=== PATIENT | female | born 1945 | race African-American/Black ===

== ENCOUNTER 2018-08-25 19:34 | Inpatient (IN) | payer OTHER ==
[~2018-08-25] VITALS: Ht 160 cm; Wt 73.9 kg
[~2018-08-25 19:34] MED LIST: AMBIEN 10 MG TA10 MG PO; ASPIRIN81 M2 PO; ATIVAN0.5 MG PO; BYSTOLIC10 MG PO; CRESTOR10 MG PO; FUROSEMIDE 20 M20 M1 PO; GLUCOPHAGE XR500 MG PO; GLUCOPHAGE500 MG PO; INDAPAMIDE2.5 MG PO; LOTREL 10-20 M1 EACH PO; POTASSIUM20 PO; SERTRALINE HCL50 MG PO
[2018-08-25 19:36] VITALS: BP 157/63
[2018-08-25 20:55] LABS: ABSOLUTE NEUTROPHILS 7.8 thou/uL (1.4-8.2); BASOPHILS 0.9 % (0.0-2.0); HEMATOCRIT 34.7 % (37.0-47.0); HEMOGLOBIN 11.8 gm/dL (12.0-15.0); LYMPHOCYTES 16.8 % (24.0-44.0); MCHC 33.9 g/dL (28.0-37.0); MCV 76.6 fL (80.0-100.0); MONOCYTES 6.1 % (1.0-8.0); PLATELET COUNT 296 thou/uL (150-400); POLYS 76.2 % (36.0-66.0); RBC 4.53 mil/uL (4.20-5.00); RDW 15.5 % (10.5-14.5); WBC 10.2 thou/uL (4.0-11.0)
[2018-08-25 21:00] LABS: URINE BILIRUBIN NEGATIVE (Negative); URINE BLOOD TRACE (Negative); URINE CLARITY CLEAR; URINE COLOR YELLOW; URINE GLUCOSE-RANDOM* NEGATIVE (Negative); URINE KETONES NEGATIVE (Negative); URINE LEUKOCYTES NEGATIVE (Negative); URINE NITRITE NEGATIVE (Negative); URINE PROTEIN (DIPSTICK) 1+ (Negative); URINE SPECIFIC GRAVITY 1.025 (1.005-1.035); URINE UROBILINOGEN 0.2 E.U./dl (0.2-1.0)
[2018-08-25 21:03] LABS: CALCIUM 8.9 mg/dL (8.5-10.1); CREATININE 1.5 mg/dL (0.6-1.0); POTASSIUM 3.2 mmol/L (3.5-5.1)
[2018-08-25 21:09] LABS: ALBUMIN 3.6 g/dL (3.4-5.0); DIRECT BILIRUBIN 0.1 mg/dL (<0.1-0.3); TOTAL BILIRUBIN 0.6 mg/dL (<0.1-1.0)
[2018-08-25 21:10] LABS: CASTS None Seen /LPF (None Seen); CRYSTALS None Seen /LPF (None Seen); SQUAMOUS 0-3 Few /LPF (0-3); URINE RBC 0-2 Rare /HPF (0-2)
[2018-08-25 21:11] LABS: URINE WBC 0-5 Rare /HPF (0-5)
[2018-08-25 23:06] VITALS: BP 157/63
--- NOTE | 2018-08-25 23:07 | NUR ---
HAND OFF TOOL PRINTED TO 4 EAST
[2018-08-25 23:58] VITALS: BP 144/48
[2018-08-26 00:22] VITALS: BP 149/57
--- NOTE | 2018-08-26 01:23 | NUR ---
PT ADMITTED TO THE UNIT FROM THE ER IN A STABLE CONDITION.PT DENIED PAIN,N/V.ADMISSION ASSESSMENT,EDUCATION AND HX COMPLETED.PT'S MEDICATION LIST NOT COMPLETED BECAUSE PT COULDN'T REMEMBER ALL HER MEDS.CALL PLACED TO PT'S DTR AND SHE PROMISED TO BRING THE MED LIST IN THE AM.SCD ON BLE.PT CONT ON HIGH FLOW O2@10L.PT RESTING ON HER BED AT THIS TIME.CALL LIGHT WITHIN REACH.
[2018-08-26 02:53] LABS: BE(vivo) -3.6 mmol/L (-2 to +3); HCO3 23.3 mmol/L (22.0-26.0); PCO2 49.3 mmHg (35.0-45.0); sO2 79.5 % (92.0-98.0)
[2018-08-26 02:55] LABS: PO2 48.6 mmHg (80.0-100.0); pH 7.292 (7.360-7.450)
[2018-08-26 03:29] LABS: CALCIUM 9.1 mg/dL (8.5-10.1); CREATININE 1.6 mg/dL (0.6-1.0); POTASSIUM 3.8 mmol/L (3.5-5.1)
[2018-08-26 05:40] VITALS: BP 146/65
--- NOTE | 2018-08-26 06:35 | NUR ---
PATIENT IS ALERT AND ORIETNED. PATIENT TRANSFERED AT 0530. PAITNET IS ON BIPAP. PAITENT ANTIBIOTIC HUNG. PATIENT IS RESTING COMFORTABLY IN BED. WCM. PATIENT IS IMPROOVING.
--- NOTE | 2018-08-26 06:59 | NUR ---
(LATE ENTRY). RESPONDED TO SURVEY DIRECTOR CALL WHEN PT IN ROOM 428. SEE SURVEY DIRECTOR FLOWSHEET. PT TRANSFERED TO [facility] RM 358.
[2018-08-26 07:30] VITALS: BP 163/70
[2018-08-26 08:20] LABS: BE(vivo) 0.5 mmol/L (-2 to +3); HCO3 25.6 mmol/L (22.0-26.0); PCO2 42.8 mmHg (35.0-45.0); pH 7.394 (7.360-7.450); sO2 99.6 % (92.0-98.0)
[2018-08-26 11:15] VITALS: BP 127/63
[2018-08-26] MEDS ORDERED: LIPITOR 20 MG T20 M1 PO (13:27)
[2018-08-26] MEDS ORDERED: XANAX 0.5 MG0.5 MG PO (13:28)
[2018-08-26] MEDS ORDERED: BYSTOLIC 5 MG5 M1 PO (13:34)
[2018-08-26] MEDS ORDERED: NORCO 7.5-3251 EACH PO (13:35)
[2018-08-26] MEDS ORDERED: LOPERAMIDE 2 MG2 M1 PO (13:38)
--- NOTE | 2018-08-26 15:29 | NUR ---
care of pt assumed this am @ ~0700. pt noted to be on bipap this am while in bed. pt has progressed today in that she has only been on the bipap for a couple of hours at a time and then she has been on o2 per nc @ 6lt w/ o2 saturations of 92-99%. pt states she is breathing better than she was early this am. pt denies co pain and no n/v/d today. pt was npo for breakfast this am as there is concern re: aspiration pneumonia, speech therapy at mid afternoon to evaluate. pt had galley items (applesauce, yogart, crackers, juice and water) for lunch. dinner ordered per dr. watkins. pt has worked w/ pt today, been up in her chair for several hours and used the [facility] to void and stool today. pt has had several family members visit today which has brightened her spirits.
[2018-08-26 16:00] VITALS: BP 141/66
[2018-08-26 20:14] VITALS: BP 154/74
[2018-08-27 04:59] VITALS: BP 164/85
[2018-08-27 06:12] LABS: ABSOLUTE NEUTROPHILS 14.8 thou/uL (1.4-8.2); BASOPHILS 0.5 % (0.0-2.0); HEMATOCRIT 34.4 % (37.0-47.0); HEMOGLOBIN 11.4 gm/dL (12.0-15.0); LYMPHOCYTES 7.1 % (24.0-44.0); MCH 25.5 pg (26.0-34.0); MCHC 33.2 g/dL (28.0-37.0); MCV 76.7 fL (80.0-100.0); PLATELET COUNT 274 thou/uL (150-400); POLYS 89.4 % (36.0-66.0); RBC 4.49 mil/uL (4.20-5.00); RDW 15.3 % (10.5-14.5); WBC 16.6 thou/uL (4.0-11.0)
[2018-08-27 06:29] LABS: ALBUMIN 3.1 g/dL (3.4-5.0); CALCIUM 8.7 mg/dL (8.5-10.1); CREATININE 1.2 mg/dL (0.6-1.0); MAGNESIUM 2.3 mg/dL (1.8-2.4); POTASSIUM 3.4 mmol/L (3.5-5.1); TOTAL BILIRUBIN 0.4 mg/dL (<0.1-1.0); TOTAL PROTEIN 7.6 g/dL (6.4-8.2)
--- NOTE | 2018-08-27 06:35 | NUR ---
SLEPT PART OF SHIFT. STATES SHE DOESNT SLEEP LONG PERIODS OF TIME. WORKING ON GOALS AND PLAN OF CARE FOR NOC. PROGRESSING SLOWLY TOWARDS DISCHARGE GOALS. UP TO BEDSIDE COMODE WITH STANDBY ASSIST WITH ASSIST OF 1. DENIES COMPLAINTS OF PAIN OR SHORTNESS OF AIR. CONTINUE TO ASSES.
[2018-08-27 07:20] VITALS: BP 160/76
[2018-08-27 11:15] VITALS: BP 152/71
[2018-08-27 11:42] LABS: ABSOLUTE NEUTROPHILS 16.1 thou/uL (1.4-8.2); BASOPHILS 0.5 % (0.0-2.0); HEMATOCRIT 34.8 % (37.0-47.0); HEMOGLOBIN 11.4 gm/dL (12.0-15.0); MCH 25.5 pg (26.0-34.0); MCHC 32.9 g/dL (28.0-37.0); MCV 77.5 fL (80.0-100.0); MONOCYTES 2.9 % (1.0-8.0); PLATELET COUNT 280 thou/uL (150-400); POLYS 91.6 % (36.0-66.0); RBC 4.49 mil/uL (4.20-5.00); RDW 15.4 % (10.5-14.5); WBC 17.5 thou/uL (4.0-11.0)
[2018-08-27 15:30] VITALS: BP 150/64
[2018-08-27 20:29] VITALS: BP 167/72
--- NOTE | 2018-08-27 20:46 | NUR ---
Assumed pt care this am, on 6L of O2 via NC. No verbalization of SOB pain, nausea or vomiting nor diarrihea. Pt had requested for her anti-anxiety medication to be started. All home medication have been restarted but will take her morning medications tomorrow as per pt. Pt was able to walk to the toilet stand by assista and took a shower with minimal help. FAmily came to visit and expressed concern with regards to some medication not being restarted and previous care given. POC followed, informed family memeber she can speak to workday manager for concerns.
[2018-08-28 03:09] VITALS: BP 147/72
--- NOTE | 2018-08-28 04:05 | NUR ---
HAD EPISODE AROUND 2100 WITH COMPLAINTS OF INCREASED WHEEZING AND SHORTNESS OF AIR. RT HERE AND PLACED ON BIPAP. TOLERATED BIPAP AND SLEPT UNTIL 0230, THEN REQUESTED TO GO BACK TO 5L/NC. O2 SAT REMAINS > 95%. WORKING ON GOALS AND PLAN OF CARE FOR NOC. PROGRESSING SLOWLY TOWARDS DISCHARGE GOALS. CONTINUE TO ASSES CLOESLY. NO PRESENT COMPLAINTS OF SHORTNESS OF AIR, STATING SHE FEELS BETTER NOW. DENIES COMPLAINTS OF PAIN.
[2018-08-28 05:37] LABS: HEMATOCRIT 33.8 % (37.0-47.0); HEMOGLOBIN 11.2 gm/dL (12.0-15.0); MCH 25.9 pg (26.0-34.0); MCV 78.4 fL (80.0-100.0); PLATELET COUNT 289 thou/uL (150-400); RBC 4.31 mil/uL (4.20-5.00); RDW 15.4 % (10.5-14.5); WBC 15.6 thou/uL (4.0-11.0)
[2018-08-28 05:51] LABS: CALCIUM 8.4 mg/dL (8.5-10.1); CREATININE 1.4 mg/dL (0.6-1.0); POTASSIUM 3.5 mmol/L (3.5-5.1)
[2018-08-28 06:39] LABS: ABSOLUTE NEUTROPHILS 14.2 thou/uL (1.4-8.2)
[2018-08-28 07:27] VITALS: BP 158/71
--- NOTE | 2018-08-28 10:47 | NUR ---
ASSESSMENT: CM REVIEWED CHART AND MET WITH PATIENT AT THE BEDSIDE. PT WAS ADMITTED WITH CAP. PT REPORTS THAT SHE LIVES IN A DUPLEX WITH HER DAUGHTER AND HER FAMILY. PT REPORTS THAT SHE HAS ABOUT 3 STEPS TO ENTER THE DUPLEX WITH NO HANDRAILS AND ABOUT 14 STEPS WITH HANDRAILS TO HER BEDROOM. PT REPORTS SHE AMBULATES INDEPENDENTLY AND DOES NOT HAVE ANY DME AT HOME. PT DENIES HAVING A GRAB BAR OR SHOWER CHAIR AND STATES SHE IS INDEPENDENT WITH ADLS. PT REPORTS THAT SHE DOES NOT WEAR OXYGEN AT HOME BUT IS CURRENTLY ON 6L. PT REPORTS SHE HAS NOT HAD HH IN THE PAST NOR BEEN TO A SNF. CM DISCUSSED ROLE. PHYSICAL THERAPY SAW PATIENT ON 08/26 AND RECOMMENDED HOME. PT REPORTS SHE WILL SEE HOW SHE DOES TODAY BUT DOES NOT FEEL SHE WILL NEED HH AND HAS GOOD SUPPORT FROM HER FAMILY. CM WILL COTNINUE TO FOLLOW TO ASSIST NEEDED.
[2018-08-28 11:25] VITALS: BP 164/85
[2018-08-28 15:07] VITALS: BP 150/72
[2018-08-28 19:51] VITALS: BP 157/67
[2018-08-29 03:45] VITALS: BP 154/77
--- NOTE | 2018-08-29 03:53 | NUR ---
SLEPT FOR SHORT TIME TONIGHT. ON BIPAP FROM 2330 TO 0215 WHEN AWAKENED DUE TO INCONTINENCE OF STOOL. PATIENT STATES SHE HAS NEVER DONE THAT BEFORE. REASSURED AND ASSISTED TO CLEAN UP AND LINENS CHANGED. WORKING ON GOALS AND PLAN OF CARE FOR NOC. PROGRESSING SLOWLY TOWARDS DISCHARGE GOALS. O2 SATS REMAIN 91-97% ON 3L/NC. CONTINUE TO ASSES CLOSELY.
[2018-08-29 07:41] VITALS: BP 160/83
[2018-08-29 08:09] LABS: HEMATOCRIT 30.9 % (37.0-47.0); HEMOGLOBIN 10.5 gm/dL (12.0-15.0); MCHC 33.9 g/dL (28.0-37.0); MCV 76.6 fL (80.0-100.0); PLATELET COUNT 295 thou/uL (150-400); RBC 4.03 mil/uL (4.20-5.00); RDW 15.3 % (10.5-14.5); WBC 14.7 thou/uL (4.0-11.0)
[2018-08-29 08:16] LABS: CALCIUM 8.6 mg/dL (8.5-10.1); CREATININE 1.3 mg/dL (0.6-1.0); POTASSIUM 3.5 mmol/L (3.5-5.1)
[2018-08-29 09:32] LABS: ABSOLUTE NEUTROPHILS 13.4 thou/uL (1.4-8.2); METAMYELOCYTES 1 %
[2018-08-29 09:33] LABS: ANISOCYTOSIS 1+; MICROCYTES 1+; OVALOCYTES FEW
[2018-08-29 11:25] VITALS: BP 170/82
--- NOTE | 2018-08-29 14:49 | NUR ---
ON-GOING ASSESSMENT: CM REVIEWED CHART AND SPOKE WITH ATTENDING. PT IS SLOWLY PROGRESSING TOWARDS DISCHARGE GOALS. CM WILL CONTINUE TO MONITOR AND FOLLOW OXYGEN NEEDS.
[2018-08-29 15:49] VITALS: BP 153/77
--- NOTE | 2018-08-29 16:26 | NUR ---
ASSUMED CARE OF PT AT APPROX 0700. PT IS ALERT AND ORIENTED X4, MONITORED ON TELE AND ABLE TO MAINTAIN 02 SAT >90 ON 02 NC. DENIES PAIN AND SOA. EVEN NON LABORED BREATHING. DOES BECOME SLIGHTLY LABORED WITH ACTIVITY BUT RECOVERS WELL. REMAINS ON IV ANTBX. ASSESSMENT CHARTED. PT STATED SHE WAS FEELING ANXIOUS, TREATED WITH PRN ANXIETY MEDICATION WITH COMPLETE RESOLUTION. VSS. NO ACUTE DISTRESS. PT MAKING PROGRESS TOWARDS POC GOALS. WILL CONTINUE TO MONITOR.
[2018-08-29 19:14] VITALS: BP 174/76
--- NOTE | 2018-08-29 19:29 | HC ---
[facility] [place] [address] CONSULTATION Name: SUSANNAALANA ALEXUS Room #: 358-P ADM IN M.R.#: [id number] Admission: 08/25/18 ������������������ Attend Phys: Artie Ruiz MD Discharge: ������������������ Date of : 45 Report #: [id number] THIS REPORT FOR: //name// CC: Rocco Villegas DATE OF SERVICE: 08/26/2018 REFERRAL PHYSICIAN: Dr. Ruiz. REASON FOR REFERRAL: Dyspnea. HISTORY OF PRESENT ILLNESS: The patient is a 73-year-old -Vietnamese female, who presents to the ED with progressive dyspnea. A Pulmonary consultation was requested. The patient states that she has been a lifelong smoker. She has never been diagnosed with chronic lung disease. She was in her usual state of health until the last several days, she started to notice increasing dyspnea. Symptoms specifically started on Tuesday. Otherwise, she denies any fever, night sweats or chills, chest pain or productive cough. Chest x-ray is notable for cardiomegaly, questionable left lower lobe infiltrates. Small right-sided pleural infiltrate is noted. PAST MEDICAL HISTORY: Notable for hypertension, diabetes mellitus, tobacco abuse, hypercholesterolemia. PAST SURGICAL HISTORY: Notable for hysterectomy, back surgery. ALLERGIES: None to medications. HOME MEDICATIONS: Include Bystolic 1 tablet once a day, Ambien 10 mg once a day, Crestor 10 mg once a day, Lasix 20 mg once a day, metformin XR 500 mg 1 tablet p.o. b.i.d., Ativan 0.5 mg p.o. p.r.n., indapamide 1 tablet once a day, Lotrel 10/20 mg once a day, Zoloft 50 mg once a day, aspirin once a day. FAMILY HISTORY: Noncontributory. SOCIAL HISTORY: She smokes about a pack a day. She denies any alcohol use. REVIEW OF SYSTEMS: As mentioned above. Otherwise 10-point system review negative. [facility] [address] [place] [address] CONSULTATION Name: ALANA MULLINS Room #: 358[facility] IN ..#: [id number] Admission: 08/25/18 ������������������ Attend Phys: Artie Ruiz MD Discharge: ������������������ Date of : 45 Report #: [id number] PHYSICAL EXAMINATION: GENERAL: She is awake, alert, in no distress. She appears mildly dyspneic. VITAL SIGNS: Temperature maximum is 100.6 degrees Fahrenheit, pulse is 90, respiratory rate is 22, blood pressure is 160/70 mmHg, saturation 98%. HEENT: Normocephalic, atraumatic. NECK: Supple, without any lymphadenopathy or thyromegaly. CHEST: Breath sounds are good with mild expiratory wheezes. CARDIOVASCULAR: Normal S1, S2. There are no obvious murmurs or gallop. Pulses are 2+/4+ bilaterally. BREASTS: Exam is deferred. ABDOMEN: Soft, nontender, no organomegaly or masses felt. GENITOURINARY: Deferred. RECTAL: Deferred. EXTREMITIES: There is no edema, cyanosis or clubbing. LABORATORY DATA: Chest x-ray as mentioned above. Electrolytes: Sodium 132, potassium 3.2, chloride is 97, CO2 is 27, BUN is 27, creatinine is 1.5. WBC 10,200, hemoglobin 11.8, platelets are normal. No evidence of bandemia. IMPRESSION: 1. Acute hypoxic respiratory failure in this 73-year-old -Vietnamese female. Exam revealed bronchospasm. She has smoked most of her life. Exacerbation of chronic obstructive pulmonary disease along with possible pneumonia is likely cause. 2. Mild bibasilar infiltrates, questionable pleural effusion. Pneumonia is possible. Questionable element of heart failure. Note that patient has been on diuretics as an outpatient. 3. Renal insufficiency, unclear if it is acute or chronic. 4. Diabetes mellitus type 2. 5. Hypertension. 6. Depression. 7. Tobacco abuse with probable underlying chronic obstructive pulmonary disease. RECOMMENDATION: We will recommend broad-spectrum antibiotics, bronchodilators and corticosteroids. Strongly recommend smoking cessation. Would also evaluate for possible heart failure with an echocardiogram. DVT and GI prophylaxis recommended. Thank you for this consultation. ��������������������������������������������� <ELECTRONICALLY SIGNED> ���������������������������������������� By: Helio Pepe MD ��������������������������������������������� 08/29/18 1929 1629 05 Helio Pepe MD /nt
[2018-08-30 04:32] VITALS: BP 170/70
[2018-08-30 07:30] VITALS: BP 166/72
[2018-08-30 11:47] LABS: HEMATOCRIT 34.4 % (37.0-47.0); HEMOGLOBIN 11.4 gm/dL (12.0-15.0); MCH 25.4 pg (26.0-34.0); MCHC 33.1 g/dL (28.0-37.0); MCV 76.7 fL (80.0-100.0); PLATELET COUNT 345 thou/uL (150-400); RBC 4.48 mil/uL (4.20-5.00); RDW 15.2 % (10.5-14.5)
--- NOTE | 2018-08-30 11:55 | NUR ---
ON-GOING ASSESSMENT: CM REVIEWED CHART AND SPOKE WITH ATTENDING. PLANS ARE FOR PATIENT TO HAVE A BRONCH TOMORROW. CM WILL CONTINUE TO FOLLOW TO ASSIST NEEDED.
[2018-08-30 12:30] LABS: ABSOLUTE NEUTROPHILS 13.3 thou/uL (1.4-8.2); MYELOCYTES 3 %
[2018-08-30 12:31] LABS: ANISOCYTOSIS 1+
[2018-08-30 15:17] LABS: APTT 26.6 Seconds (24.5-32.8)
[2018-08-30 15:30] VITALS: BP 179/65
[2018-08-30 16:06] VITALS: BP 186/81
--- NOTE | 2018-08-30 16:31 | NUR ---
PT C/O OF CHEST/UNDER BREAST PAIN. CONTACT DR. STEWART AND INSTRUCTED TO OBTAIN TROPONIN, EKG, AND GIVE NITRO. PT NO DENIES PAIN AND REFUSES NITRO SL. WILL CONTINUE TO ASSESS.
--- NOTE | 2018-08-30 17:03 | NUR ---
ASSUMED CARE OF PT AT APPROX 0700. PT IS ALERT AND ORIENTED X4, MONITORED ON TELE AND ABLE TO MAINTAI 02 SAT >90 ON 02 SETTINGS. VIA NC. DENIES PAIN AND SOA. EVEN NON LABORED BREATHING AT REST BUT DOES GET LABORED WITH ACTIVITY. 02 SAT REMAINS STABLE AND PT ABLE TO RECOVER QUICKLY. ASSESSMENT CHARTED. THIS AFTERNOON PT COMPLAINS ON CHEST PAIN AND BP IS ELEVATED. DOCTOR NOTIFIED. RECIEVED ORDER FOR NITRO AND EKS. PT REFFUSES NITRO AND STATES THAT IT IS NOT HER CHEST HURTING IT IS HER BREAST. BREASK EXAMINED, NO SWELLING OR CHANGE IN TEMPERATURE. PT REQUESTED MEDICATION FOR ANXIETY, ADMINISTERED TO PT. PT HAS BEEN UPDATED ON POC. WILL CONTINUE TO MONITOR
[2018-08-30 20:00] VITALS: BP 171/66
[2018-08-31] VITALS (8 sets, daily range): BP systolic 152–193; BP diastolic 59–93
[2018-08-31 05:30] LABS: ABSOLUTE RETIC COUNT 0.0766 10^6/uL; OBSERVED RETIC COUNT 1.74 % (0.6-2.6)
--- NOTE | 2018-08-31 05:33 | NUR ---
PT RESTING IN BED. PT HAS BEEN NPO SINCE YESTERDAY WITH SIPS OF WATER WHEN TAKING PILLS FOR TODAYS BRONCH. PT SR ON MONITOR. PT WITH MAINTENANCE IVF. PT BP REMAINS ELEVATED EVEN WITH PRN BP MED BUT A DOSE OF METEPROLOL WAS GIVEN ONETIME DURING MY SHIFT.
[2018-08-31 05:39] LABS: % SATURATION 9 % (20-39); IRON 26 ug/dL (50-170); TIBC 280 ug/dL (250-450)
[2018-08-31 06:07] LABS: FERRITIN 136 ng/mL (8-252)
--- NOTE | 2018-08-31 08:01 | NUR ---
care of pt assumed @ ~0700. pt awake aox4, aware of bronchoscopy this am. phone call from pt's daughter re: pt's night and plan for this am.
--- NOTE | 2018-08-31 08:22 | EKG ---
[place] [address] [facility] [place] [address] ELECTROCARDIOGRAM REPORT Name: ALANA MULLINS Room #: 358-P ADM IN M.R.#: [id number] ������������������ Admission: 08/25/18 ������������������ Attend Phys: Artie Ruiz MD Discharge: ������������������ Date of : 45 Report #: [id number] ����������������������������������������������������������������� [id number] THIS REPORT FOR: //name// [facility] Test Date: 2018-08-30 Test Time: 16:24:48 Pat Name: ALANA MULLINS Department: Room: 358 P Gender: F Rivet Tester: SAMANTHA : 1945 Requested By: Brit Obregon Order Number: [id number] MD: Kev Olivo Measurements Intervals Freedom Rate: 87 P: 74 [place]: 143 QRS: -9 QRSD: 109 T: 72 QT: 421 QTc: 507 Interpretive Statements Sinus rhythm Abnormal R-wave progression, late transition Nonspecific intraventricular conduction delay Prolonged QT interval Compared to ECG 10/05/2012 05:50:18 No significant change was found Electronically Signed On 08-31-2018 8:21:51 CDT by Kev Olivo [email or web address] ��������������������������������������������� <ELECTRONICALLY SIGNED> ���������������������������������������� By: Kev Olivo MD, [facility] ��������������������������������������������� 08/31/18 0821 1624 1624 Kev Olivo MD, [facility] /EPI
--- NOTE | 2018-08-31 10:02 | NUR ---
Assess for length of stay. Admit with pneumonia, SOA. Bronchoscopy today. Hx diabetes, BG 105-151. Pt states appetite down slightly but was ready to eat some lunch following procedure today. Reports usual wt of 160 lb and most recent wt 163 lb. [employer] strength wnl. Low nutrition risk
--- NOTE | 2018-08-31 11:35 | 2DMMODE ---
[facility] [address] [place] [address] 2 D/M-MODE ECHOCARDIOGRAM Name: ALANA MULLINS Room #: 358-P ADM IN M.R.#: [id number] ������������� Admission: 08/25/18 ������������� Attend Phys: Artie Ruiz MD Discharge: ��� ������������� ��� Date of : 45 Date of Service: 08/31/18 1134 �� Report #: [id number] �������� ��������������������������������������������[id number] THIS REPORT FOR: //name// APPROVED REPORT Study performed: 08/31/2018 09:37:16 EXAM: Comprehensive 2D, Doppler, and color-flow Echocardiogram Patient Location: Bedside Room #: 358 Status: routine BSA: 1.77 HR: 83 bpm BP: 170/75 mmHg Rhythm: NSR Other Information Study Quality: Adequate Risk Factors: Cardiac Risk Factors: HTN, Hyperlipidemia, DM, Smoking Indications COPD Dyspnea Weakness 2D Dimensions IVSd: 16.61 (7-11mm) LVOT Diam: 18.00 (18-24mm) LVDd: 33.36 mm PWd: 14.88 (7-11mm) Ascending Ao: 31.57 (22-36mm) LVDs: 20.03 (25-40mm) Aortic Root: 27.49 mm LV Single Plane 4CH: 75.06 % LV Single Plane 2CH: 68.45 % Biplane EF: 77.2 % Volumes Left Atrial Volume (Systole) Single Plane 4CH: 128.02 mL Single Plane 2CH: 119.89 mL LA ESV Index: 80.00 mL/m2 Aortic Valve AoV Peak Enoc.: 2.44 m/s [facility] [address] [place] [address] 2 D/M-MODE ECHOCARDIOGRAM Name: ALANA MULLINS Room #: 358-P ADM IN M.R.#: [id number] ������������� Admission: 08/25/18 ������������� Attend Phys: Artie Ruiz MD Discharge: ��� ������������� ��� Date of : 45 Date of Service: 08/31/18 1134 �� Report #: [id number] �������� ��������������������������������������������[id number] AO Peak Gr.: 21.87 mmHg LVOT Max P.31 mmHg AO Mean Gr.: 12.60 mmHg LVOT Mean P.99 mmHg AO V2 Mean: 1.65 m/s LVOT Max V: 1.35 m/s AO V2 VTI: 40.82 cm LVOT Mean V: 1.06 m/s JOSE (VTI): 1.74 cm2 LVOT V1 VTI: 29.22 cm JOSE Vmax: 1.34 cm2 SV (LVOT): 71.03 mL Mitral Valve MV Peak Gr.: 33.54 mmHg MV Mean Gr.: 15.74 mmHg MV Max Enoc.: 2.87 m/s MV Mean Enoc.: 1.88 m/s MV VTI: 646.73 mm MVA VTI: 109.83 mm2 MV PHT: 126.36 ms MVA (PHT): 1.74 cm2 TDI Medial E' Enoc.: 0.07 m/s Lateral E' Enoc.: 0.11 m/s Pulmonary Valve PV Peak Enoc.: 1.29 m/s PV Peak Gr.: 6.62 mmHg Pulmonary Vein P Vein S: 0.46 m/s P Vein A: 0.28 m/s P Vein D: 0.82 m/s P Vein A Dur.: 100.3 msec P Vein S/D Ratio: 0.56 Tricuspid Valve TR Peak Enoc.: 4.22 m/s RAP Estimate: 10.00 mmHg TR Peak Gr.: 71.35 mmHg PA Pressure: 81.00 mmHg Left Ventricle The left ventricle is normal size. There is normal LV segmental wall motion. Moderate to severe concentric left ventricular hypertrophy. Left ventricular systolic function is hyperdynamic. The mid- left ventricular cavity pressure gradient is 65 mmHg. LVEF is >70%. This study is not technically sufficient to allow evaluation of the LV diastolic function. Right Ventricle The right ventricle is normal size. The right ventricular [place] [address] 2 D/M-MODE ECHOCARDIOGRAM Name: ALANA MULLINS Room #: 358-P [facility] IN M.R.#: [id number] ������������� Admission: 08/25/18 ������������� Attend Phys: Artie Ruiz MD Discharge: ��� ������������� ��� Date of : 45 Date of Service: 08/31/18 1134 �� Report #: [id number] �������� ��������������������������������������������[id number] [place] Left atrium is severely dilated. The right atrium size is normal. Aortic Valve Aortic valve is mildly calcified. No aortic regurgitation is present. Peak aortic valve pressure gradient is 23 mmHg and the mean pressure gradient is 13 mmHg. The calculated aortic valve area is 1.7 cm2. Mild aortic stenosis. Mitral Valve Mitral valve annulus and leaflets are heavily calcified. Mild to moderate mitral regurgitation. The peak mitral valve pressure gradient is 34 mmHG and the mean pressure gradient is 16 mmHg. The calculated mitral valve area is 1.1 cm2. Severe mitral stenosis. Tricuspid Valve The tricuspid valve is normal in structure. Moderate tricuspid regurgitation. Pulmonary artery pressure is 80 mmHg. Severe pulmonary hypertension. Pulmonic Valve The pulmonary valve is normal in structure. Mild pulmonic regurgitation. Great Vessels The aortic root is normal in size. The ascending aorta is normal in size. IVC is dilated and collapses <50% with inspiration. Pericardium There is no pericardial effusion. <Conclusion> Left ventricular systolic function is hyperdynamic. The mid- left ventricular cavity pressure gradient is 65 mmHg. There is normal LV segmental wall motion. Moderate to severe concentric left ventricular hypertrophy. LVEF is >70%. Left atrium is severely dilated. Aortic valve is mildly calcified, mildly stenotic Peak aortic valve pressure gradient is 23 mmHg and the mean pressure gradient is 13 mmHg. The calculated aortic valve area is 1.7 cm2. Mitral valve annulus and leaflets are heavily calcified. Severe [facility] [address] [place] [address] 2 D/M-MODE ECHOCARDIOGRAM Name: ALANA MULLINS Room #: 358-P ADM IN M.R.#: [id number] ������������� Admission: 08/25/18 ������������� Attend Phys: Artie Ruiz MD Discharge: ��� ������������� ��� Date of : 45 Date of Service: 08/31/18 1134 �� Report #: [id number] �������� ��������������������������������������������[id number] mitral stenosis. Mild to moderate mitral regurgitation. The peak mitral valve pressure gradient is 34 mmHG and the mean pressure gradient is 16 mmHg. The calculated mitral valve area is 1.1 cm2. Moderate tricuspid regurgitation. Pulmonary artery pressure of 80 mmHg. There is no pericardial effusion. ��������������������������������������������� <ELECTRONICALLY SIGNED> ���������������������������������������� By: Kev Olivo MD, [facility] ��������������������������������������������� 08/31/18 1134 1134 1134 Kev Olivo MD, [facility] /INF
[2018-08-31 13:18] LABS: CALCIUM 9.1 mg/dL (8.5-10.1); CREATININE 1.3 mg/dL (0.6-1.0); MAGNESIUM 1.9 mg/dL (1.8-2.4); POTASSIUM 3.8 mmol/L (3.5-5.1)
[2018-09-01 04:45] VITALS: BP 140/66
--- NOTE | 2018-09-01 05:44 | NUR ---
Assumed care at 1845. Pt resting in bed. AOX4. VSS. BP has been stable. On 2L NC. Refused Cipap at night. Up at sourav. Denies chest pain and anxiety. On TELE running SR. No identified needs at the moment. Will continue to monitor.
[2018-09-01 06:07] LABS: CALCIUM 8.3 mg/dL (8.5-10.1); CREATININE 1.4 mg/dL (0.6-1.0); POTASSIUM 3.2 mmol/L (3.5-5.1)
[2018-09-01 07:17] VITALS: BP 157/69
[2018-09-01 11:48] VITALS: BP 150/71
--- NOTE | 2018-09-01 12:27 | NUR ---
ON-GOING ASSESSMENT: CM REVIEWED CHART AND MET WITH PATIENT AT THE BEDSIDE. PT IS CURRENTLY OFF OXYGEN. PT IS SLOWLY PROGRESSING TOWARDS DISCHARGE GOALS AND IS CONTINUING TO DIURESIS. PT IS DOING WELL WITH THERAPY AND THEY ARE RECOMMENDING SHE CAN JUST RETURN HOME WITH HER DAUGHTER. PT IS POSSIBLE DISCHARGE OVER THE WEEKEND.
--- NOTE | 2018-09-01 13:49 | NUR ---
ASSUMED CARE OF PT AT 0700. PT'S VS STABLE. NSR ON TELE. RT DC'D PT'S O2 VIA NC THIS MORNING. PT'S O2 SATS HAVE BEEN IN MID-90S ON RA. PT IS UP AD VICKIE. DENIES ANY PAIN OR SOB. PT WAS SCHEDULED TO HAVE A BRONCH TODAY BUT PT DOES NOT WANT TO HAVE PROCEDUE W/O FAMILY PRESENT, AND GIVEN HER IMPROVED RESPIRATORY STATUS, PROCEDURE WAS CANCELLED FOR TODAY. DR. LUIS ROUNDED ON PT THIS MORNING AND ANTICIPATES DC THIS WEEKEND. PT IS PROGRESSING TOWARD HER POC GOALS. WILL CONTINUE TO MONITOR AND ASSESS.
[2018-09-01 15:59] VITALS: BP 132/48
[2018-09-01 16:08] LABS: ANA INTERPRETATION Positive (Negative)
[2018-09-01 20:00] VITALS: BP 147/73
--- NOTE | 2018-09-01 21:31 | NUR ---
PATIENT STABLE SENT TO 4W AT 2100. PATIENT ALERT AND ORIENTED.
[2018-09-01 22:04] VITALS: BP 171/83
--- NOTE | 2018-09-01 23:29 | NUR ---
PATIENT ARRIVED FROM 3W ROOM 358 VIA W/C WITH SALES SPECIALIST AT 2118. THIS NURSE RECEIVED REPORT FROM WAQAR (NURSE) AT 2054. PATIENT ALERT AND ORIENTED X4, UP ADLIB. ORIENTED TO ROOM. WILL MONITOR.
--- NOTE | 2018-09-02 04:38 | NUR ---
PATIENT ALERT AND ORIENTED X4. UP ADLIB IN ROOM. IVPB INFUSED W/O COMPLICATION. PLEASANT AND COOPERATIVE WITH CARE. TRANSFER FROM #358 EARLY IN SHIFT. DENIES PAIN. BS MONITORED PER ORDER. AWAKE MOST OF THE NIGHT. POSSIBLE DISCHARGE HOME TODAY. WILL MONITOR.
[2018-09-02 04:50] VITALS: BP 181/76
[2018-09-02 04:52] LABS: HEMATOCRIT 32.1 % (37.0-47.0); HEMOGLOBIN 10.7 gm/dL (12.0-15.0); MCH 25.7 pg (26.0-34.0); MCHC 33.5 g/dL (28.0-37.0); MCV 76.9 fL (80.0-100.0); RBC 4.17 mil/uL (4.20-5.00); WBC 14.8 thou/uL (4.0-11.0)
[2018-09-02 05:08] LABS: CALCIUM 8.5 mg/dL (8.5-10.1); CREATININE 1.4 mg/dL (0.6-1.0); POTASSIUM 3.8 mmol/L (3.5-5.1)
[2018-09-02 08:00] VITALS: BP 182/68
[2018-09-02] MEDS ORDERED: LASIX 40 MG TAB40 MG PO (11:52)
[2018-09-02] MEDS ORDERED: KLOR-CON 1010 MEQ PO (11:53)
[2018-09-02] MEDS ORDERED: PREDNISONE 10 M10 MG PO (11:54)
[2018-09-02 12:09] VITALS: BP 182/68
--- NOTE | 2018-09-02 14:02 | NUR ---
Assumed pt care this am, pt is alert and oriented, up at sourav and has had no sob. No complaints or pain any any sign of distress hsa been obsernved nor verbalized. POC followed, seen by MD, DC instructions and prescriptions given to the pt and daughter. IV removed pt is not dc.
== END 2018-09-02 13:47 | disposition home or self-care (01) | DRG 177 ==
LOC: ER 19:34 → 3W 21:47 → EROBS 21:47 → 4E 23:56 → 3W 08-26 05:30 → 4W 09-01 21:17
PROVIDERS: Hospitalist; Internal Medicine Pulmonary Disease; Nurse Practitioner; Nurse Practitioner Family; ADMIT Internal Medicine
PROC: 5A09357 Assistance with Respiratory Ventilation, Less than 24 Consecutive Hours, Continuous Positive Airway Pressure (ICD-10-PCS; principal; 2018-08-26)
PROC: 5A09357 Assistance with Respiratory Ventilation, Less than 24 Consecutive Hours, Continuous Positive Airway Pressure (ICD-10-PCS; 2018-08-27)
PROC: 5A09357 Assistance with Respiratory Ventilation, Less than 24 Consecutive Hours, Continuous Positive Airway Pressure (ICD-10-PCS; 2018-08-28)
PROC: 5A09357 Assistance with Respiratory Ventilation, Less than 24 Consecutive Hours, Continuous Positive Airway Pressure (ICD-10-PCS; 2018-08-29)
PROC: 5A09357 Assistance with Respiratory Ventilation, Less than 24 Consecutive Hours, Continuous Positive Airway Pressure (ICD-10-PCS; 2018-08-30)
PROC: 5A09357 Assistance with Respiratory Ventilation, Less than 24 Consecutive Hours, Continuous Positive Airway Pressure (ICD-10-PCS; 2018-08-31)
DX: J69.0 Pneumonitis due to inhalation of food and vomit (principal); J96.21 Acute and chronic respiratory failure with hypoxia; N17.9 Acute kidney failure, unspecified; E87.1 Hypo-osmolality and hyponatremia; R04.2 Hemoptysis; J44.1 Chronic obstructive pulmonary disease with (acute) exacerbation; I38 Endocarditis, valve unspecified; N18.4 Chronic kidney disease, stage 4 (severe); I13.0 Hypertensive heart and chronic kidney disease with heart failure and stage 1 through stage 4 chronic kidney disease, or unspecified chronic kidney disease; I50.30 Unspecified diastolic (congestive) heart failure; E78.00 Pure hypercholesterolemia, unspecified; E86.0 Dehydration; E87.6 Hypokalemia; F32.9 Major depressive disorder, single episode, unspecified; E78.5 Hyperlipidemia, unspecified; F41.9 Anxiety disorder, unspecified; E11.22 Type 2 diabetes mellitus with diabetic chronic kidney disease; F17.210 Nicotine dependence, cigarettes, uncomplicated; G89.4 Chronic pain syndrome; D50.9 Iron deficiency anemia, unspecified; I27.20 Pulmonary hypertension, unspecified; I35.0 Nonrheumatic aortic (valve) stenosis; E87.70 Fluid overload, unspecified; I05.0 Rheumatic mitral stenosis; Z90.710 Acquired absence of both cervix and uterus; Z71.6 Tobacco abuse counseling; Z79.899 Other long term (current) drug therapy
CPT/HCPCS: 10045; 10783; 10879